=== PATIENT | male | born 1965 | race Caucasian/White ===

== ENCOUNTER 2016-12-01 06:04 | Emergency (ER) | payer OTHER ==
[~2016-12-01] VITALS: Ht 177.8 cm; Wt 81.6 kg
[~2016-12-01 06:04] MED LIST: MOTRIN800 MG PO
[2016-12-01 06:24] VITALS: BP 150/88
--- NOTE | 2016-12-01 06:54 | ED UPPER/LOWER EXTREMITY COMPL ---
History of Present Illness General Chief Complaint: Lower Extremity Problems Stated Complaint: LT LEG PAIN SINCE YESTERDAY NO KNOWN INJ Source: patient, old records Exam Limitations: no limitations Vital Signs & Intake/Output Vital Signs & Intake/Output Vital Signs Date Time Temp Pulse Resp B/P Pulse O2 O2 Flow FiO2 Ox Delivery Rate 12/01 0624 98.2 70 18 150/88 98 Room Air Allergies Coded Allergies: NO KNOWN ALLERGIES (02/09/14) Reconcile Medications Ibuprofen (Motrin) 800 MG TAB 1 TAB PO TID PAIN Ibuprofen (Motrin) 800 MG TAB 1 TAB PO TID PAIN Triage Note: PT TO ED C/O LEFT THIGH PAIN, ACHING AND THROBBING, FOR 2 DAYS. LEFT DUGGAN FEELS NUMB. DENIES INJURY. DENIES SWELLING Triage Nurses Notes Reviewed? yes HPI: Patient presents for evaluation of left leg pain and numbness. Specifically the patient is complaining of left anterior thigh pain and anterior left leg numbness. Patient's symptoms began on Tuesday while at home. He states on Tuesday he was helping a friend repair his car and feels he may have strained his thigh at that time The pain is a sharp throbbing pain that did not respond to [id number] Advil. The pain seems better when the patient keeps his leg extended but nothing seems to make the pain worse. Past History Travel History Traveled to [place] past 21 day No Medical History Any Pertinent Medical History? see below for history Neurological: NONE EENT: NONE Cardiovascular: NONE Respiratory: NONE Gastrointestinal: NONE Hepatic: NONE Renal: NONE Musculoskeletal: NONE Psychiatric: NONE Endocrine: NONE Surgical History Surgical History: non-contributory Psychosocial History What is your primary language Kinyarwanda Tobacco Use: Current Daily Use Daily Tobacco Use Amount/Type: => 5 Cigarettes daily ETOH Use: heavy use Illicit Drug Use: denies illicit drug use Family History Hx Contributory? No Review of Systems Review of Systems Constitutional: Reports: no symptoms. EENTM: Reports: no symptoms. Respiratory: Reports: no symptoms. Cardiovascular: Reports: no symptoms. Gastrointestinal/Abdominal: Reports: no symptoms. Genitourinary: Reports: no symptoms. Musculoskeletal: Reports: see HPI. Skin: Reports: no symptoms. Neurological/Psychological: Reports: no symptoms. Hematologic/Endocrine: Reports: no symptoms. Immunological: Reports: no symptoms. All Other Systems: Reviewed and Negative Physical Exam Physical Exam General Appearance: SEE BELOW Comments: Gen.: Well-nourished, well-developed, no acute respiratory distress. Head: Normocephalic, atraumatic. Eyes: Normal inspection bilaterally Ears: Normal inspection bilaterally Nose: Normal inspection, nasal cannula in place Throat/mouth : Moist mucosa Neck: Supple, full range of motion, no goiter Heart: Regular rate and rhythm Lungs: Quiet respirations Back: Normal range of motion Extremities: Tenderness of the left anterior thigh, normal sensation to light touch distally. 2+ bilateral lower extremity deep tendon reflexes. Calves nontender. Dorsalis pedis pulses normal and symmetrical. Neurologic: Cranial nerves grossly intact, speech is clear Skin: warm and dry Psychiatric: Calm, cooperative, no apparent delusions or hallucinations Progress Differential Diagnosis: contusion, sprain, tendon injury Plan of Care: Anti-inflammatory, muscle relaxer, rest Departure Departure Disposition: HOME OR SELF CARE Condition: Stable Clinical Impression Primary Impression: Strain of left hip and thigh Qualifiers: Encounter type: initial encounter Qualified Codes: S76.012A - Strain of muscle, fascia and tendon of left hip, initial encounter; S76.912A - Strain of unspecified muscles, fascia and tendons at thigh level, left thigh, initial encounter Referrals: UNKNOWN (PCP/Family) Additional Instructions: Diclofenac and cyclobenzaprine as prescribed. Rest, no exertion or heavy lifting. Follow-up with your primary care doctor for reevaluation in one week if not improving. Return if any concerns or sudden worsening. Thank you for choosing the [facility] for your care. It was a pleasure to serve you today. Erik Butt M.D. [facility] Departure Forms: Customer Survey General Discharge Information Prescriptions: Current Visit Scripts Diclofenac Sodium 1 TAB PO BID PRN PAIN #14 TAB Cyclobenzaprine HCl 1 TAB PO TID PRN MUSCLE SPASMS #21 TAB
[2016-12-01] MEDS ORDERED: DICLOFENAC SODI75 M2 PO (07:01)
[2016-12-01] MEDS ORDERED: CYCLOBENZAPRINE10 M1 PO (07:01)
== END 2016-12-01 07:12 ==
LOC: ERH 06:04
DX: S76.912A Strain of unspecified muscles, fascia and tendons at thigh level, left thigh, initial encounter (principal); S76.012A Strain of muscle, fascia and tendon of left hip, initial encounter; X58.XXXA Exposure to other specified factors, initial encounter